=== PATIENT | male | born 1950 | race Caucasian/White ===

== ENCOUNTER 2022-12-18 08:14 | Day surgery (SDC) | payer MEDICARE, SELFPAY ==
--- NOTE | 2022-12-18 08:22 | P.CONAN_ITS ---
[facility] Past Medical History Medical History Migraine Hypothyroid Elevated cholesterol HTN (hypertension) Family History Family history of problems with anesthesia: No Surgical History Surgical History Hx of inguinal hernia repair H/O colonoscopy History of Problems with Anesthesia: No Social History Social History Patient Tobacco Use Status: Current everyday Tobacco user Tobacco use type: Cigarette Cigarettes Per Day: 5 Second Hand Smoke Exposure: No Meds Allergies Allergy/AdvReac Type Severity Reaction Status Date / Time No Known Allergies Allergy Verified 12/14/22 14:24 Active Medications: Current Medications Lactated Ringer's (Lr) 1,000 mls @ 50 mls/hr IVCONT .Q20H [facility] Home Medications Medication Instructions Recorded Confirmed Last Taken Type levothyroxine 150 mcg tablet 150 mcg PO DAILY 12/14/22 12/14/22 Unknown History lisinopril 10 1 tab PO DAILY 12/14/22 12/14/22 Unknown History mg-hydrochlorothiazide 12.5 mg tablet multivitamin 1 tab PO DAILY 12/14/22 12/14/22 Unknown History pravastatin 40 mg tablet 40 mg PO DAILY 12/14/22 12/14/22 Unknown History Exam Exam Date and Time: December 18, 2022821 Airway Mallampati Class: II Heart: RRR Lungs: CTA Assessment and Plan Assessment Anesthesia Assessment: Anesthesia Plan Discussed and Smoking Cess. Discussed Final Anesthetic Review Family History of Problems with Anesthesia: No History of Problems with Anesthesia: No NPO: Yes ASA Class: II Final Preanesthetic Review: Meds/Allgs Chart Reviewed, Consent Obtained/Reviewed and Anes Risks/Benef Reviewed Patient Risk: Low Procedure Risk: Low Anesthetic Plan Anesthetic Plan: MAC: Disposition: Standard PACU
[2022-12-18 08:27] VITALS: BMI 30.5
[2022-12-18 08:36] VITALS: BP 134/87; PULSE 59; RESP 16; TEMP 36.5; O2SAT 98
[2022-12-18] MEDS: Lactated Ringers 1,000 ML 50 ML IVCONT (08:45)
--- NOTE | 2022-12-18 09:52 | P.BOP_ITS ---
Brief Operative Note Date of Service: 12/18/22 Pre-op diagnosis: Screening Post-op diagnosis: other (Colon polyps) Procedure: Colonoscopy to the cecum with cold biopsy/removal of polyps x 2 and cold snare polypectomy x 2 Surgeon: Ezio Resendez MD Anesthesia: MAC Was an Printing Assistant used for this Procedure?: No Estimated blood loss (mL): 2.0 Pathology: other (A. Ascending colon polyps B. Transverse colon polyp) Condition: stable Disposition: PACU
[2022-12-18 09:55] VITALS: BP 144/78; PULSE 51; RESP 16; TEMP 36.1; O2SAT 98
--- NOTE | 2022-12-18 10:06 | OP_ITS ---
DATE OF SERVICE: 12/18/2022 SURGEON: Ezio Resendez MD INDICATIONS: The patient presents for evaluation of colorectal cancer screening. Full consent has been obtained from him for this, including risks of bleeding and perforation. PREOPERATIVE DIAGNOSIS: Colorectal cancer screening. POSTOPERATIVE DIAGNOSIS: PROCEDURE PERFORMED: Colonoscopy to the cecum with biopsy and removal of polyps, and cold snare polypectomy. ESTIMATED BLOOD LOSS: COMPLICATIONS: ANESTHESIA: Monitored anesthesia care. ASSISTANTS: SPECIMENS: POSTOPERATIVE DIAGNOSES: Colorectal cancer screening, colon polyps, diverticulosis, and internal hemorrhoids. DESCRIPTION OF PROCEDURE: The patient was placed in the left lateral decubitus position. The digital rectal exam revealed no abnormalities. The Olympus video pediatric colonoscope was entered into the rectum and advanced easily to the cecum. Once in the cecum, I did identify normal-appearing cecal pouch with appendiceal orifice and a normal-appearing ileocecal valve. The entire cecum and ileocecal valve appeared normal. There was transillumination of light deep in the right lower quadrant. The scope was slowly withdrawn assessing all mucosal surfaces carefully. Preparation was excellent. In the ascending colon were 2 flat, approximately 3 or 4 mm polyps, which were each biopsied and completely removed with cold biopsy forceps. In the more distal ascending colon was an approximately 5 or 6 mm polyp, which was removed by cold snare polypectomy, recovered by suction. These were all placed in the same container. The polypectomy site appeared clean, without any sign of residual polyp nor any significant bleeding. In the transverse colon was a flat, approximately 5 or 6 mm polyp, which was removed by cold snare polypectomy and recovered by suction. The polypectomy site appeared clean, without any sign of residual polyp nor bleeding. I did not visualize any other polyps, colitis, nor angiodysplasia. There was a mild amount of sigmoid diverticulosis. In the rectum, scope was retroflexed visualizing internal hemorrhoids, but no other pathology. The rectal mucosa appeared normal. The scope was straightened and withdrawn from the patient. He tolerated the procedure well and was returned to recovery area in stable condition. IMPRESSION: 1. Colon polyps. 2. Diverticulosis. 3. Internal hemorrhoids. PLAN: The results of the pathology will be checked. If these are tubular adenomas, I would recommend a followup colonoscopy in 5 years. If they are all hyperplastic, then I do not think he will need any further screening colonoscopies in the future. He was advised not to use any aspirin and NSAIDs for 1 week. This has been discussed with his . MD EUGENIA Us/JAI / [id number]
[2022-12-18 10:10] VITALS: BP 153/88; PULSE 54; RESP 18; O2SAT 99
--- NOTE | 2022-12-18 12:53 | HO.POSTANES ---
Post Anesthesia Evaluation Post Anesthesia Evaluation Date of Service: 12/18/22 Vital Signs: Vital Signs Temp Pulse Resp BP Pulse Ox O2 Del Method 12/18/22 10:10 54 18 153/88 H 99 Room Air 12/18/22 09:55 97.0 F 51 16 144/78 H 98 Room Air 12/18/22 08:36 97.7 F 59 16 134/87 98 Room Air Anesthesia: Monitored Mental Status: Awake Pain Control: Satisfactory Nausea/Vomiting: None Hydration: Adequate Anesthesia-Related Issues: No Anes. Related Issues
== END 2022-12-18 10:35 | disposition home or self-care (01) ==
PROVIDERS: PCP Internal Medicine; Visit Provider Internal Medicine
PROC: 0DJD8ZZ Inspection of Lower Intestinal Tract, Via Natural or Artificial Opening Endoscopic (ICD-10-PCS; CPT 45378; principal; 2022-12-18 09:30)
DX: Z12.11 Encounter for screening for malignant neoplasm of colon (principal); D12.2 Benign neoplasm of ascending colon; D12.3 Benign neoplasm of transverse colon; K57.30 Diverticulosis of large intestine without perforation or abscess without bleeding; K64.8 Other hemorrhoids; I10 Essential (primary) hypertension; E78.5 Hyperlipidemia, unspecified; E03.9 Hypothyroidism, unspecified; F17.210 Nicotine dependence, cigarettes, uncomplicated; Z79.899 Other long term (current) drug therapy
CPT/HCPCS: 45385; 45380; 88305; J2405; J2704